=== PATIENT | male | born 1990 | race Two or more races ===

== ENCOUNTER 2018-05-13 15:46 | Emergency (ER) | payer SELFPAY ==
[~2018-05-13] VITALS: Ht 175.3 cm; Wt 72.6 kg
[2018-05-13 15:59] VITALS: BP 132/77
[2018-05-13] MEDS: KETOROLAC TROMETH 60MG/2ML VIAL IM ONE ×2 (16:33→16:45)
[2018-05-13] MEDS ORDERED: LIDOCAINE 1%HCL (LOCAL ANESTH) 10 ML MDV ONE (16:47)
[2018-05-13] MEDS ORDERED: LIDOCAINE 1% HCL (LOCAL ANESTH.) INJ 20ML MDV IJ ONE (17:00)
== END 2018-05-13 17:21 | disposition home or self-care (01) ==
LOC: ER 15:51
DX: S91.312A Laceration without foreign body, left foot, initial encounter (principal); F17.210 Nicotine dependence, cigarettes, uncomplicated; W22.8XXA Striking against or struck by other objects, initial encounter; Y93.89 Activity, other specified; Y99.8 Other external cause status; Y92.89 Other specified places as the place of occurrence of the external cause
CPT/HCPCS: 12002; 73630; 96372; 99284; J1885; J2001

== ENCOUNTER 2018-05-25 09:50 | Emergency (ER) | payer SELFPAY ==
[~2018-05-25] VITALS: Ht 175.3 cm; Wt 74.8 kg
[2018-05-25 10:39] VITALS: BP 113/71
[2018-05-25] MEDS: BACITRACIN TOP OINT 1 UD PKG TOP ONE (11:05)
== END 2018-05-25 11:09 | disposition home or self-care (01) ==
LOC: ER 09:52
DX: S91.312D Laceration without foreign body, left foot, subsequent encounter (principal); F17.210 Nicotine dependence, cigarettes, uncomplicated; X58.XXXD Exposure to other specified factors, subsequent encounter